=== PATIENT | female | born 1945 | race Caucasian/White ===

== ENCOUNTER 2019-01-05 06:57 | Day surgery (SDC) | payer MEDICARE, OTHER ==
[2019-01-05] MEDS ORDERED: fentaNYL 100 MCG/2 ML SDV ONE (07:13)
[2019-01-05] MEDS ORDERED: Propofol 200 MG/20 ML SDV ONE ×2 (07:13→08:23)
[2019-01-05] MEDS ORDERED: Midazolam 1 MG/ML 2 ML SDV ONE (07:14)
[2019-01-05] MEDS ORDERED: Sodium Chloride 0.9% 1,000 ML IV SCH (07:30)
[2019-01-05 09:52] VITALS: BP 117/65
--- NOTE | 2019-01-06 07:55 | OR ---
DATE OF PROCEDURE: 01/05/2019 PROCEDURE: Colonoscopy. FINDINGS: 1. No gross etiology for the bowel changes. 2. Random biopsy of cecum. 3. Cecal polyp, approximately 1 cm, completely removed using hot snare. 4. Sigmoid colon polyp, approximately 8 mm, completely removed using cold biopsy forceps. 5. Rectal biopsies, random. COMPLICATIONS: None. SURGEON: Néstor Manriquez MD PROJECT ASSOCIATE: None. PREOPERATIVE DIAGNOSIS: Diarrhea. POSTOPERATIVE DIAGNOSIS: Diarrhea. RISKS: The risks, benefits, alternatives, and limitations including, but not limited to infection, bleeding, and perforation were explained to the patient, who wished to proceed. PROCEDURE IN DETAIL: The patient was placed in left lateral decubitus position. Digital rectal exam was performed and the scope was introduced and advanced atraumatically to the ileocecal valve. A photo was taken. The scope was brought back through the ascending, transverse, descending colon, and retroflexed. The aforementioned polyps were all identified and completely removed as described above. There was no colitis. No diverticulosis. No old or new blood. No inflammation. Random biopsies were performed to evaluate for interval inflammatory bowel disease. No abnormalities on retroflex. The patient tolerated the procedure well. Néstor Manriquez MD /[id number]
== END 2019-01-05 10:33 | disposition home or self-care (01) ==
LOC: JP.SDS 06:57
PROVIDERS: ATTEND Surgery
DX: R19.7 Diarrhea, unspecified (principal); D12.0 Benign neoplasm of cecum; K63.5 Polyp of colon; J44.9 Chronic obstructive pulmonary disease, unspecified; I25.10 Atherosclerotic heart disease of native coronary artery without angina pectoris; I10 Essential (primary) hypertension
CPT/HCPCS: 45380; 45385; 88305; J2250; J2704; J3010; J7030

== ENCOUNTER 2021-09-17 07:18 | Day surgery (SDC) | payer MEDICARE, OTHER ==
[2021-09-17] MEDS ORDERED: fentaNYL 100 MCG/2 ML SDV ONE (07:59)
[2021-09-17] MEDS ORDERED: Propofol 200 MG/20 ML SDV ONE (07:59)
[2021-09-17] MEDS ORDERED: Sodium Chloride 0.9% 1,000 ML IV SCH (08:00)
[2021-09-17 10:24] VITALS: BP 122/65; PULSE 61
--- NOTE | 2021-09-17 11:24 | OR ---
DATE OF PROCEDURE: 09/17/2021 SURGEON: Néstor Manriquez MD PROCEDURE: Colonoscopy. FINDINGS: 1. Descending colon polyp #1, approximately 5 mm, completely removed using cold biopsy forceps. 2. Sigmoid colon polyp #1, completely removed using hot snare wire device. 3. Sigmoid colon polyp #2, approximately 3 mm, completely removed using cold biopsy forceps. COMPLICATIONS: None. REGULATORY INTERNSHIP: None. ANESTHESIA: MAC. PREOPERATIVE DIAGNOSIS: Screening colonoscopy. POSTOPERATIVE DIAGNOSIS: Screening colonoscopy. RISKS: Risks, benefits, alternatives, and limitations including, but not limited to infection, bleeding, perforation, false positives and false negatives were explained to the patient who wished to proceed. PROCEDURE IN DETAIL: The patient was placed in left lateral decubitus position. Digital rectal exam was performed without abnormality. Scope was introduced and advanced atraumatically to the ileocecal valve. A photo was taken of the appendiceal orifice. Scope was brought back to the ascending, transverse, descending colon, and retroflexed. No evidence of old or new blood. No masses. No diverticulosis. No evidence of colitis. No abnormalities on retroflexion. Greater than 8 minutes was spent removing the scope. Prep was acceptable, approximately 90% of the luminal surface could be seen. The patient tolerated the procedure well. Néstor Manriquez MD /[id number]
== END 2021-09-17 10:38 | disposition home or self-care (01) ==
LOC: JP.SDS 07:18
PROVIDERS: ATTEND Surgery
DX: Z12.11 Encounter for screening for malignant neoplasm of colon (principal); D12.4 Benign neoplasm of descending colon; I10 Essential (primary) hypertension; I25.10 Atherosclerotic heart disease of native coronary artery without angina pectoris; K21.9 Gastro-esophageal reflux disease without esophagitis; J44.9 Chronic obstructive pulmonary disease, unspecified; Z88.8 Allergy status to other drugs, medicaments and biological substances
CPT/HCPCS: 45380; 45385; 88305; J2704; J3010; J7030

== ENCOUNTER 2022-04-19 05:17 | Day surgery (SDC) | payer MEDICARE, OTHER ==
[2022-04-19] MEDS: Acetaminophen 500 MG Tab PO ONE (05:53)
[2022-04-19 06:23] LABS: ESTIMATED GFR 59 mL/min (>60)
[2022-04-19] MEDS: Albuterol/Ipratropium 3.0-0.5 MG/3 ML Neb Soln NEB ONE (06:36)
[2022-04-19] MEDS: Dextrose 5%-Lactated Ringers 1,000 ML IV SCH (06:38)
[2022-04-19] MEDS ORDERED: Neostigmine Methylsulfate 1 MG/ML 5 ML Syringe ONE (07:05)
[2022-04-19] MEDS ORDERED: Rocuronium 50 MG/5 ML Vial ONE (07:05)
[2022-04-19] MEDS ORDERED: Glycopyrrolate 0.2 MG/ML 5 ML MDV ONE (07:05)
[2022-04-19] MEDS ORDERED: Dexamethasone 4 MG/ML SDV ONE (07:05)
[2022-04-19] MEDS ORDERED: Ondansetron 4 MG/2 ML SDV ONE (07:05)
[2022-04-19] MEDS ORDERED: Propofol 200 MG/20 ML SDV ONE (07:05)
[2022-04-19] MEDS ORDERED: fentaNYL 250 MCG/5 ML SDV ONE (07:05)
[2022-04-19] MEDS ORDERED: Succinylcholine 200 MG/10 ML MDV ONE (07:05)
[2022-04-19] MEDS: ceFAZolin 2 GM in Premix Bag 1 BAG IV ONE (07:06)
[2022-04-19] MEDS: Bupivacaine 0.5% 50 ML MDV ONE (07:32)
[2022-04-19] MEDS: Lidocaine 1% with EPINEPHrine 1:100,000 50 ML MDV ONE (07:33)
[2022-04-19 08:53] VITALS: BP 136/61; PULSE 57
== END 2022-04-19 09:25 | disposition home or self-care (01) ==
LOC: JP.SDS 05:17
PROVIDERS: ATTEND Surgery
DX: M79.89 Other specified soft tissue disorders (principal); J44.9 Chronic obstructive pulmonary disease, unspecified; F33.40 Major depressive disorder, recurrent, in remission, unspecified; I25.10 Atherosclerotic heart disease of native coronary artery without angina pectoris; I10 Essential (primary) hypertension; E78.5 Hyperlipidemia, unspecified; Z79.899 Other long term (current) drug therapy; Z88.8 Allergy status to other drugs, medicaments and biological substances; Z79.82 Long term (current) use of aspirin
CPT/HCPCS: 36415; 80053; 85027; 88304; A9270-GY; J0330; J0690; J1100; J2020; J2405; J2704; J2710; J3010; J3490; J7121; J7620